=== PATIENT | male | born 1960 | race Native Hawaiian/Other Pacific Islander ===

== ENCOUNTER 2018-03-14 15:00 | Outpatient (CLI) | payer BC | END 2018-03-14 21:41 | disposition home or self-care (01) | LOC: RAD 15:00 | DX: M79.671 Pain in right foot (principal) ==

== ENCOUNTER 2022-02-10 11:57 | Outpatient (CLI) | payer BC ==
[2022-02-10 12:52] LABS: PLATELET COUNT 250 K/uL (142-355)
[2022-02-10 13:42] LABS: POTASSIUM 4.4 mmol/L (3.6-5.2)
== END 2022-02-10 18:58 | disposition home or self-care (01) ==
LOC: US 11:57
PROVIDERS: ATTEND Student in an Organized Health Care Education/Training Program
DX: N28.89 Other specified disorders of kidney and ureter (principal); D63.1 Anemia in chronic kidney disease; N18.9 Chronic kidney disease, unspecified; E79.0 Hyperuricemia without signs of inflammatory arthritis and tophaceous disease; R80.8 Other proteinuria; I12.9 Hypertensive chronic kidney disease with stage 1 through stage 4 chronic kidney disease, or unspecified chronic kidney disease; R94.6 Abnormal results of thyroid function studies; D50.8 Other iron deficiency anemias; E55.9 Vitamin D deficiency, unspecified; E78.2 Mixed hyperlipidemia; E11.65 Type 2 diabetes mellitus with hyperglycemia
CPT/HCPCS: 36415; 80053; 80074; 81002; 82306; 82570; 83036; 83735; 83970; 84100; 84156; 84165; 84550; 85027; 86037; 86160; 86592; 86701; 86702; 87389